=== PATIENT | male | born 1990 | race Caucasian/White ===

== ENCOUNTER 2019-03-21 17:00 | Emergency (ER) | payer MEDICAID, OTHER ==
[~2019-03-21] VITALS: Ht 167 cm; Wt 84.0 kg
--- NOTE | 2019-03-21 17:24 | ED Psychosocial ---
General Stated Complaint: SUICIDAL THOUGHTS Source: patient Exam Limitations: no limitations History of Present Illness Date Seen by Provider: Mar 21, 2019 Time Seen by Provider: 17:22 Initial Comments This mentally handicapped gentleman from [place] presents to ER by [place] [employer] with reports of alleged suicidality. Patient states that he is from detention and because of "relapsed" (unsure what this means) he is not allowed to go for walks as he would like to. 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 At this time he feels much more calm, does not want to harm himself stating "oh no I would never do that", also agrees he does not want to harm anyone else. He states he just got mad and would like to go back home to [place] now. Timing/Duration: just prior to arrival Severity: mild Allergies and Home Medications Allergies Coded Allergies: No Known Drug Allergies (Unverified , 03/21/19) Patient Home Medication List Home Medication List Reviewed: Yes Review of Systems Constitutional: see HPI EENTM: see HPI Respiratory: no symptoms reported Cardiovascular: no symptoms reported Genitourinary: no symptoms reported Musculoskeletal: no symptoms reported Skin: no symptoms reported Psychiatric/Neurological: No Symptoms Reported Past Hywxedk-Goisfc-Uwofcs Hx Patient Social History Recent Foreign Travel: No Contact w/Someone Who Travel: No Physical Exam Capillary Refill : Height, Weight, BMI Height: '" Weight: lbs. oz. kg; BMI Method: General Appearance: WD/WN, no apparent distress HEENT: PERRL/EOMI, normal ENT inspection Respiratory: no respiratory distress, no accessory muscle use Gastrointestinal: normal bowel sounds, non tender, soft Neurologic/Psychiatric: alert, normal mood/affect, oriented x 3 Appearance/Memory: appropriate appearance, appropriate insight, neat Behavior/Eye Contact: cooperative, good eye contact Thoughts/Hallucinations: normal thought pattern, no apparent hallucination Skin: normal color, warm/dry Progress/Results/Core Measures Results/Orders My Orders Orders - JOANIE ROGERS APRN Alprazolam Tablet (Xanax Tablet) (03/21/19 17:30) Departure Communication (Admissions) I spoke with the [place] [employer] officer who brought this gentleman here, she states that he told them he was suicidal and wanted to be brought to the emergency room so she brought him here. At this time he is much more calm and as such I will send him back to [place]. I did give him a dose of Xanax here as he was agreeable to taking something that would help him relax a bit Impression Primary Impression: Difficulty controlling anger Disposition: 01 HOME, SELF-CARE Condition: Stable Departure-Patient Inst. Decision time for Depature: 17:30 Referrals: [facility] (PCP/Family) Primary Care Physician Patient Instructions: NO INSTRUCTIONS GIVEN Add. Discharge Instructions: 1. Return to ER for any concerns 2. Follow-up with your doctor next week 3. JOANIE ROGERS APRN Mar 21, 2019 17:24 POS
[2019-03-21] MEDS ORDERED: ALPRAZolam 0.5 MG (XANAX) TAB PO SCH (17:30)
[2019-03-21 17:54] VITALS: BP 140/90
== END 2019-03-21 17:54 | disposition home or self-care (01) ==
LOC: EDUNIT# 17:00 → ER 17:01
DX: R45.4 Irritability and anger (principal)
CPT/HCPCS: 99283

== ENCOUNTER 2020-01-09 18:04 | Emergency (ER) | payer MEDICAID ==
[~2020-01-09] VITALS: Ht 167 cm; Wt 91.0 kg
[2020-01-09] MEDS ORDERED: BENZ0.5T42 (18:45)
[2020-01-09] MEDS ORDERED: ATEN50TA (18:45)
[2020-01-09] MEDS ORDERED: RISP4TAB (18:45)
[2020-01-09] MEDS ORDERED: HYDR-3781 (18:45)
--- NOTE | 2020-01-09 18:52 | ED Integumentary General ---
General Chief Complaint: Skin/Wound Problems Stated Complaint: POISON CHARLES Nursing Triage Note: PT STATES HAS POISON CHARLES RASH FOR APPROX 7 YEARS ON L ARM, GROIN, AND LIP. 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 Timing/Duration: just prior to arrival Severity: moderate Associated Symptoms: denies symptoms Allergies and Home Medications Allergies Coded Allergies: No Known Drug Allergies (Unverified , 03/21/19) Patient Home Medication List Home Medication List Reviewed: Yes Review of Systems Review of Systems Constitutional: see HPI EENTM: see HPI Respiratory: no symptoms reported Cardiovascular: no symptoms reported Genitourinary: no symptoms reported Musculoskeletal: no symptoms reported Skin: see HPI Psychiatric/Neurological: No Symptoms Reported Endocrine: No Symptoms Reported Past Dnlzdae-Cvedyj-Lofskw Hx Patient Social History Alcohol Use: Rarely Uses Number of Drinks Today: AA Alcohol Beverage of Choice: Beer Recreational Drug Use: No Type Used: Smokeless Tobacco Recent Foreign Travel: No Contact w/Someone Who Travel: No Recent Infectious Disease Expo: No Recent Hopitalizations: No Immunizations Up To Date Tetanus Booster (TDap): Unknown PED Vaccines UTD: Yes Seasonal Allergies Seasonal Allergies: No Past Medical History Surgeries: Yes Abdominal Respiratory: No Cardiac: No Neurological: No Genitourinary: No Gastrointestinal: No Musculoskeletal: No Endocrine: No HEENT: No Cancer: No Psychosocial: Yes Anxiety, Violent Behavior Integumentary: No Blood Disorders: No Adverse Reaction/Blood Tranf: No Physical Exam Vital Signs Vital Signs - First Documented 01/09/20 18:40 Temp 36.9 Pulse 79 Resp 18 B/P (MAP) 130/86 (101) Pulse Ox 96 Capillary Refill : Less Than 3 Seconds General Appearance: WD/WN, no apparent distress Respiratory: no respiratory distress, no accessory muscle use Neurologic/Psychiatric: alert, normal mood/affect, oriented x 3 Skin: normal color, warm/dry Skin Problem Location: upper extremities (erythematous vesicular rash dorsum left forearm) Skin Problem Character: other Progress/Results/Core Measures Results/Orders My Orders Orders - JOANIE ROGERS APRN Dexamethasone Injection (Decadron Inje (01/09/20 19:00) Triamcinolone Acetonide Im (Kenalog-40) (01/09/20 19:00) Medications Given in ED Current Medications Medications Dose Ordered Sig/Mary Route Start Time Stop Time Status Last Admin Dose Admin Dexamethasone Sodium Phosphate 10 mg ONCE ONCE IM 01/09/20 19:00 01/09/20 19:01 DC 01/09/20 19:06 10 MG Triamcinolone Acetonide 40 mg ONCE ONCE IM 01/09/20 19:00 01/09/20 19:01 DC 01/09/20 19:06 40 MG Vital Signs/I&O 01/09/20 18:40 Temp 36.9 Pulse 79 Resp 18 B/P (MAP) 130/86 (101) Pulse Ox 96 Blood Pressure Mean: 101 Departure Impression Primary Impression: Rhus dermatitis Disposition: HOME, SELF-CARE Condition: Stable Departure-Patient Inst. Decision time for Depature: 18:54 Referrals: [facility] (PCP/Family) Primary Care Physician Patient Instructions: Contact Dermatitis (DC) JOANIE ROGERS F[employer]ITURE [employer]ER Jan 09, 2020 18:52
[2020-01-09] MEDS ORDERED: TRIAMCINOLONE ACET (KENALOG-40) 40 MG/ML 1 ML VIAL IM ONE (19:00)
[2020-01-09 19:09] VITALS: BP 131/78
== END 2020-01-09 19:09 | disposition home or self-care (01) ==
LOC: EDUNIT# 18:04 → ER 18:06
DX: L23.7 Allergic contact dermatitis due to plants, except food (principal)
CPT/HCPCS: 99284